=== PATIENT | male | born 1950 | race Asian ===

== ENCOUNTER 2018-07-01 13:22 | Outpatient (CLI) | payer BC ==
[2018-07-01] MEDS ORDERED: ISOVUE-370 76%-LOCM 1 ML ONE (13:24)
--- NOTE | 2018-07-03 08:39 | CT ---
CT CARDIAC WITHOUT CONTRAST CTA CORONARY ANGIOGRAM WITH IV CONTRAST AND 3D POSTPROCESSING: (on independent work station) HISTORY: A 67-year-old male with chest pain, hypertension, high cholesterol, family history of coronary artery disease. FINDINGS: CT CORONARY CALCIUM SCORING: Right coronary artery: 375. LAD: 178. Circumflex: 340. Other 1: 14. Other 2: 9. The total calcium score is 916 using the AJ-[address] ANGIOGRAPHY: There is severe stenosis (greater than 70%) in the LAD, LCX, and RCA. QUANTITATIVE LEFT VENTRICULAR FUNCTION MEASUREMENTS ARE FOLLOWS: Ejection fraction 69% End-diastolic volume 103 mL End-systolic volume 32 mL Stroke volume 71 mL/minute Cardiac output 4.2 L/minute Myocardial mass 109 gm The wall motion is normal. No pleural or pericardial effusions are seen. There is an 11 mm pleural- based nodule in the right upper lobe. There is no evidence of thoracic aortic aneurysm or dissection . There are mild degenerative changes in the spine. IMPRESSION: 1. Total coronary calcium score is 916. 2. Triple vessel coronary artery disease with high-grade stenotic changes in the left anterior desce nding, left circumflex artery, and right coronary artery. Cardiology consultation is recommended. 3. 11 mm right upper lobe nodule. Dedicated CT scan of the chest is recommended. CODE T POS: [facility]
== END 2018-07-01 13:23 | disposition home or self-care (01) ==
LOC: BICCT 13:22
PROVIDERS: ATTEND Internal Medicine
DX: R07.9 Chest pain, unspecified (principal); R91.1 Solitary pulmonary nodule; I25.10 Atherosclerotic heart disease of native coronary artery without angina pectoris
CPT/HCPCS: 75574; 82565

== ENCOUNTER 2018-07-23 13:33 | Outpatient (CLI) | payer BC ==
[~2018-07-23 13:33] MED LIST: Iopamidol 370 76% 100 ML VIAL ONE
--- NOTE | 2018-07-23 16:01 | CT ---
CT OF THE CHEST WITH CONTRAST: Comparison: 07-01-18 History: Pulmonary nodule seen on coronary heart examination. No complaints. Technique: Multiple contiguous axial images were obtained in a CT of the chest with contrast. Coronal and sagittal reformats were performed. FINDINGS: In the peripheral aspect of the right upper lobe there is an 11-12 mm peripheral wedge shaped area of nodularity on image 43 of 110. No other pulmonary nodules are seen. No pneumothorax or pleural effus ion are seen. No focal infiltrates are seen in the lungs. The heart is normal in size. Calcifications are seen in the coronary arteries. No hilar or mediastina l lymphadenopathy are present. Visualized subdiaphragmatic structures are unremarkable. Degenerative changes are seen in the spine. The chest wall soft tissues are unremarkable. IMPRESSION: Right upper lobe peripheral area of nodularity could represent scarring. A follow up CT in one year i s recommended to ensure continued stability. POS: [facility]
== END 2018-07-23 13:34 | disposition home or self-care (01) ==
LOC: BICCT 13:33
PROVIDERS: ATTEND Internal Medicine
DX: R91.1 Solitary pulmonary nodule (principal)
CPT/HCPCS: 71260

== ENCOUNTER 2018-09-10 07:58 | Outpatient (CLI) | payer BC ==
[2018-09-10 09:47] LABS: #Basophils 0.1 thou/uL (0.0-0.2); #Eosinphils 0.3 thou/uL (0.0-0.7); #Lymphocytes 2.1 thou/uL (1.20-3.40); #Monocytes 0.4 thou/uL (0.11-0.59); #Neutrophils 3.1 thou/uL (1.40-6.50); %Eosinophils 4.5 % (0.0-10.0); %Lymphocytes 35.5 % (21.0-51.0); %Monocytes 6.9 % (0.0-10.0); %Neutrophils 52.2 % (42.0-75.0); Hemoglobin 15.7 g/dL (14.0-18.0); Mean Corpuscular HGB CONC 32.3 g/dL (32.0-36.0); Mean Corpuscular Hemoglobin 25.4 pg (27.0-31.0); Mean Corpuscular Volume 78.6 fL (78.0-98.0); Mean Platelet Volume 8.2 fL (7.4-10.4); Platelet Count 253 thou/uL (130-400); RBC Distribution Width 12.5 % (11.5-14.5); Red Blood Cell (RBC) Count 6.16 mill/uL (4.70-6.10)
[2018-09-10 10:16] LABS: ALT (SGPT) 21 U/L (8-55); AST (SGOT) 19 U/L (5-34); Albumin 4.6 g/dL (3.4-4.8); Alkaline Phosphatase 53 U/L (40-150); Anion Gap 14 mmol/L (10-20); BUN (Urea Nitrogen) 16 mg/dL (8.4-25.7); Bilirubin, Total 0.5 mg/dL (0.2-1.2); Calc. Creatinine Clearance 0 mL/min (70-130); Carbon Dioxide 26 mmol/L (23-31); Chloride 101 mmol/L (98-107); Estimated GFR-MDRD 74; Globulin 2.4 g/dL (2.4-3.5); Glucose 108 mg/dL (80-115); Potassium 4.2 mmol/L (3.5-5.1); Sodium 137 mmol/L (136-145)
[2018-09-10 10:27] LABS: Cardiac Risk 3.6 (Less than 4.5); Cholesterol 108 mg/dl (< 200 Desired); HDL Cholesterol 30 mg/dL (>60 Neg Risk); LDL Cholesterol, Calculated 56 mg/dL; Triglycerides 109 mg/dL (Less than 150)
--- NOTE | 2018-09-10 11:48 | RAD ---
PA AND LATERAL VIEWS CHEST: Date: 09/10/18 HISTORY: Preop evaluation. FINDINGS: The heart size is normal. The lungs are well expanded without focal areas of consolidation, pneumotho races, or pleural effusions. No acute osseous abnormalities are seen. IMPRESSION: No radiographic evidence of acute cardiopulmonary process. POS: [facility]
== END 2018-09-10 07:59 | disposition home or self-care (01) ==
LOC: LABBT 07:58
PROVIDERS: ATTEND Internal Medicine Cardiovascular Disease
DX: Z01.818 Encounter for other preprocedural examination (principal); I25.10 Atherosclerotic heart disease of native coronary artery without angina pectoris
CPT/HCPCS: 71046; 80053; 80061; 85025; 93005; 93010

== ENCOUNTER 2018-09-18 05:52 | Inpatient (IN) | payer BC ==
[2018-09-10 08:59] VITALS: BMI 21.6
[2018-09-18] MEDS ORDERED: Heparin 10,000 UNITS/1 ML VIAL ONE (07:00)
[2018-09-18] MEDS ORDERED: Fentanyl 100 MCG/2 ML VIAL ONE (07:11)
[2018-09-18] MEDS ORDERED: Midazolam HCl 2 mg/2 ml Vial ONE (07:11)
[2018-09-18] MEDS ORDERED: Protamine Sulfate 50 MG/5 ML VIAL ONE (07:33)
[2018-09-18] MEDS ORDERED: traMADol HCl 50 MG TAB PO PRN (07:51)
[2018-09-18] MEDS ORDERED: Nitroglycerin 0.4 MG TAB (25 Tab Bottle) SL PRN (07:51)
[2018-09-18] MEDS ORDERED: Acetaminophen/Codeine 30-300mg Tablet PO PRN ×2 (07:51)
[2018-09-18] MEDS ORDERED: Sodium Chloride 0.9% 1,000 ML IV SCH (08:00)
[2018-09-18] MEDS ORDERED: Sodium Chloride 0.9% 200 ML IV SCH (08:00)
[2018-09-18] MEDS ORDERED: Iopamidol 370 76% 100 ML VIAL ONE (09:25)
[2018-09-18] MEDS ORDERED: Iopamidol 370 76% 50 ML VIAL FS ONE (09:25)
[2018-09-18] MEDS: Aspirin 81 mg Enteric Coated Tablet PO SCH (16:01)
[2018-09-18] MEDS: Ezetimibe 10 MG TAB PO SCH (16:01)
[2018-09-18] MEDS: Hydrochlorothiazide 25 MG TAB PO SCH (16:02)
[2018-09-18] MEDS: Nebivolol HCl 5 MG TAB PO SCH (16:02)
[2018-09-18] MEDS ORDERED: Atorvastatin Calcium 40 MG TAB PO SCH (21:00)
[2018-09-18] MEDS ORDERED: Alogliptin 25 MG TAB PO SCH (21:00)
--- NOTE | 2018-09-18 21:39 | CON ---
DATE OF CONSULTATION: 09/18/2018 REQUESTING PHYSICIAN: Dr. Lambert. PRIMARY CARE PHYSICIAN: Dr. Myrick. CHIEF COMPLAINT: Coronary disease. HISTORY OF PRESENT ILLNESS: The patient is a 68-year-old diabetic man whose younger brother few years ago had severe coronary artery disease with markedly decreased LV function and only survived about 6 months after bypass surgery. 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 He regularly walks and rides his bicycle and has not noticed any changes in his exercise tolerance or had any problems with dyspnea on exertion. He has not had any orthopnea or PND. A few years ago pursuing the chest symptoms that he has had in the context of his brother's coronary disease and his own diabetes, a Cardiolite was performed that was not suggestive of ischemia. Last June, he had a coronary CT angiogram; however, that suggested significant lesions in all 3 systems and after considering treatment options, opted to pursue cardiac catheterization, which was done today, that showed 3-vessel coronary disease with good LV function. PAST MEDICAL HISTORY: Significant for hypertension and diabetes. HOME MEDICATIONS: 1. Bystolic 10 mg daily. 2. Januvia 100 mg daily. 3. Metformin 1000 mg b.i.d. 4. Avalide 150/12.5 mg one tablet b.i.d. 5. Jardiance 25 mg every morning. 6. Lipitor 40 mg daily. 7. Zetia 10 mg daily. 8. Baby aspirin daily. 9. Aciphex 20 mg daily. ALLERGIES: HE DENIES ANY MEDICAL ALLERGIES. SOCIAL HISTORY: He has never smoked. He has trivial alcohol history. FAMILY HISTORY: Positive for his brother with premature coronary disease. REVIEW OF SYSTEMS: Negative for any eye, speech, facial, or extremity symptoms to suggest TIAs. Negative for any crampy pain in his legs consistent with claudication. Negative for any shortness of breath. Negative for any orthopnea or PND. Negative for any pedal edema. Negative for any paresthesias in his hands or feet. PHYSICAL EXAMINATION: GENERAL: He is a thin man in no distress. Height is 5 feet 5 inches, weight is 129 pounds, heart rate 82, blood pressure 114/64, temperature 98.1, room air O2 saturations are 96%. HEENT: He has no xanthelasma. NECK: No JVD. No carotid bruits. CHEST: Clear to auscultation. He has a regular rate and rhythm. ABDOMEN: Soft and nontender without masses or bruits. EXTREMITIES: He has easily palpable radial and posterior tibial pulses bilaterally. I was able to appreciate a strong right dorsalis pedis pulse, but I was not able to clearly feel the left one. He has what appears to be good saphenous vein. He has no clubbing, cyanosis, or edema. NEUROLOGIC: Grossly nonfocal. LABORATORY DATA: Shows a white count of 6.0, hemoglobin 15.7, hematocrit 48.4, platelets 253,000. Sodium 137, potassium 4.2, chloride 101, CO2 26, glucose 108, BUN 16, creatinine 1.0, calcium 10.0, protein 7.0, albumin 4.6, bilirubin 0.5, alkaline phosphatase 53, AST 19, ALT 21, triglycerides 109, cholesterol 108, LDL 56, HDL 30. His chest x-ray is clear with normal heart size and no aortic knob calcification. Cardiac catheterization shows a right dominant system. He has about 60% lesion in between the first septal head orthopedic team physician and a high diagonal. He has high-grade lesion in the small OM1 and then 60% to 70% lesion in the circumflex proper that then leads ultimately out towards the apex. He has a long segment of his mid to distal LAD with diffuse irregularity with serial stenoses on the order of about 60% to 70% percent. LVEF is around 60% to 70% as well. LV pressure is 114/3 with an EDP of 9. Aortic pressure on pullback was 105/47 with a mean of 73. IMPRESSION AND PLAN: Three-vessel coronary disease with normal left ventricular function in a diabetic man with no anginal symptoms or equivalent, but a positive family history for premature coronary disease and cardiomyopathy. I do not think that there is any particular urgency to revascularization. Given his diabetes, I would rather imagine that over the halfway his best results will be with surgical revascularization and I think that is going to be how he wishes to proceed, but he wants to have a little bit of time to talk it over with his immediate family that is with him and to give time for out of town family to arrive here before scheduling surgery. Job ID: [id number]
[2018-09-19] MEDS: Ezetimibe 10 MG TAB PO SCH (08:59)
[2018-09-19] MEDS: Nebivolol HCl 5 MG TAB PO SCH (08:59)
[2018-09-19] MEDS: Hydrochlorothiazide 25 MG TAB PO SCH (08:59)
[2018-09-19] MEDS: Aspirin 81 mg Enteric Coated Tablet PO SCH (09:00)
[2018-09-19 11:55] VITALS: BP 141/73; TEMP 97.8
--- NOTE | 2018-09-19 17:32 | DIS ---
DATE OF ADMISSION: 09/18/2018 DATE OF DISCHARGE: 09/19/2018 PRIMARY CARE PHYSICIAN: Stalin Baires MD DISCHARGE DISPOSITION: Home. FOLLOWUP: 1. Follow up with primary care physician, Dr. Stalin Baires in 1 week. 2. Follow up with cardiovascular surgeon, Dr. Bakari Vines in [place] for evaluation for coronary artery bypass grafting. ALLERGIES: NO KNOWN DRUG ALLERGIES. DISCHARGE MEDICATIONS: Same as admission medications. He was advised to increase the aspirin to 325 mg daily. Sublingual nitroglycerin was added. INPATIENT CONSULTANTS: 1. [facility] hospitalist. 2. Cardiovascular surgeon. 3. Primary attending with Dr. Leandro Lambert. BRIEF HOSPITAL COURSE: The patient is a 68-year-old male, who was admitted under Cardiology Service for elective cardiac catheterization. His workup was consistent with 3-vessel coronary artery disease. He had 70% lesion in the proximal LAD, 80% stenosis in the first obtuse marginal, 70% stenosis in the mid circumflex, another 50% stenosis in the mid circumflex, 70% stenosis in the mid RCA with 50% stenosis in the distal RCA. Coronary artery bypass surgery was recommended. The patient was evaluated by Dr. Bains. However, the patient requested to be discharged. He will follow up with cardiovascular surgeon in [place]. Sublingual nitroglycerin was added. Plan was discussed with the patient in detail. He stated understanding. A copy of the cath report was provided. He also received the cardiac catheterization report on the disc. FINAL DIAGNOSES: 1. Three-vessel coronary artery disease. The patient decided to see a cardiovascular surgeon in [place]. 2. Family history of heart disease. 3. Hypertension. 4. Diabetes mellitus type 2. 5. Normal left ventricular ejection fraction on the cardiac catheterization. 6. Chronic kidney disease stage 2. 7. Significant labs; BUN 16, creatinine 1, and LFTs in normal range. 8. Fasting lipid profile showed cholesterol 108, LDL 56, and triglyceride 109. Job ID: [id number]
== END 2018-09-19 14:12 | disposition home or self-care (01) | DRG 287 ==
LOC: CCL 05:52 → 2SE 13:28
PROVIDERS: ADMIT Internal Medicine Cardiovascular Disease; ATTEND Internal Medicine Cardiovascular Disease
PROC: 4A023N7 Measurement of Cardiac Sampling and Pressure, Left Heart, Percutaneous Approach (ICD-10-PCS; principal; 2018-09-18)
PROC: B2111ZZ Fluoroscopy of Multiple Coronary Arteries using Low Osmolar Contrast (ICD-10-PCS; 2018-09-18)
DX: I25.10 Atherosclerotic heart disease of native coronary artery without angina pectoris (principal); E11.22 Type 2 diabetes mellitus with diabetic chronic kidney disease; I12.9 Hypertensive chronic kidney disease with stage 1 through stage 4 chronic kidney disease, or unspecified chronic kidney disease; N18.2 Chronic kidney disease, stage 2 (mild); E78.00 Pure hypercholesterolemia, unspecified; Z82.49 Family history of ischemic heart disease and other diseases of the circulatory system; Z79.899 Other long term (current) drug therapy; Z79.84 Long term (current) use of oral hypoglycemic drugs; Z79.82 Long term (current) use of aspirin
CPT/HCPCS: 36416; 93458; 99152; C1769; J1644; J2250; J2720; J3010; Q9967